=== PATIENT | male | born 1995 | race Caucasian/White ===

== ENCOUNTER 2017-11-08 01:33 | Emergency (ER) | payer MEDICAID | END 2017-11-08 02:10 | disposition left against medical advice (07) | LOC: ED 01:33 | DX: Z53.21 Procedure and treatment not carried out due to patient leaving prior to being seen by health care provider (principal) ==

== ENCOUNTER 2018-07-11 05:57 | Emergency (ER) | payer MEDICAID ==
[~2018-07-11] VITALS: Ht 167.6 cm; Wt 84.1 kg
[2018-07-11 06:04] VITALS: Ht 167.6 cm; Wt 84.1 kg
[2018-07-11 08:08] VITALS: BP 120/62
== END 2018-07-11 08:08 | disposition home or self-care (01) ==
LOC: ED 05:57
DX: J30.9 Allergic rhinitis, unspecified (principal)
CPT/HCPCS: Q0092

== ENCOUNTER 2018-07-17 23:50 | Emergency (ER) | payer MEDICAID ==
[~2018-07-17] VITALS: Ht 170.2 cm; Wt 84.8 kg
[2018-07-17 23:55] VITALS: Ht 170.2 cm; Wt 84.8 kg
[2018-07-18 01:18] VITALS: BP 120/59
== END 2018-07-18 01:18 | disposition home or self-care (01) ==
LOC: ED 23:50
DX: J20.9 Acute bronchitis, unspecified (principal)
CPT/HCPCS: J7620